=== PATIENT | female | born 1975 | race Caucasian/White ===

== ENCOUNTER 2023-07-22 18:56 | Emergency (ER) | payer OTHER ==
[2023-07-22] MEDS ORDERED: TRAMADOL 50 MG TAB PO (19:38)
[2023-07-22] MEDS ORDERED: CARAFATE 1GM1 G PO (19:39)
[2023-07-22] MEDS ORDERED: ALDACTAZIDE 25/1 TAB PO (19:39)
[2023-07-22] MEDS ORDERED: MELOXICAM15 MG PO (19:39)
[2023-07-22 19:55] LABS: BASO # 0.01 K/mm3 (0.02-0.10); HEMATOCRIT 47.1 % (37.0-47.0); HEMOGLOBIN 15.7 g/dL (12.5-16.0); LYMPH# 1.24 K/mm3 (1.50-4.00); MEAN CELL VOLUME 92 fl (78-100); MEAN CORPUSCULAR HEMOGLOBIN 31 pg (27-31); MEAN CORPUSCULAR HGB CONC 33 g/dL (33-37); MEAN PLATELET VOLUME 10.8 fl (7.4-10.4); MONO # 0.64 K/mm3 (0.20-0.80); NEU # 4.29 K/mm3 (1.40-6.50); PLATELET COUNT 155 K/mm3 (130-400); RED BLOOD COUNT 5.11 M/mm3 (4.10-5.30); WHITE BLOOD COUNT 6.2 K/mm3 (4.8-10.8)
[2023-07-22 20:04] LABS: CALCIUM 9.6 mg/dL (8.3-10.5)
[2023-07-22 20:05] LABS: TOTAL PROTEIN 7.7 g/dL (6.4-8.3)
[2023-07-22 20:07] LABS: TOTAL BILIRUBIN 0.2 mg/dL (0.2-1.2)
[2023-07-22 21:01] VITALS: BP 189/115
== END 2023-07-22 21:04 | disposition home or self-care (01) ==
LOC: ED 18:56
PROVIDERS: Physician Assistant
DX: J10.1 Influenza due to other identified influenza virus with other respiratory manifestations (principal)